=== PATIENT | female | born 1995 | race American Indian/Alaskan Native ===

== ENCOUNTER 2016-05-14 11:36 | Outpatient (CLI) | payer MEDICAID ==
[2016-05-14 12:10] VITALS: BP 111/68
== END 2016-05-14 13:05 | disposition home or self-care (01) ==
LOC: TRG 11:36
PROVIDERS: ATTEND Obstetrics & Gynecology
DX: O77.9 Labor and delivery complicated by fetal stress, unspecified (principal); O47.9 False labor, unspecified; Z3A.00 Weeks of gestation of pregnancy not specified
CPT/HCPCS: 59025

== ENCOUNTER 2016-05-16 07:03 | Inpatient (IN) | payer MEDICAID ==
[2016-05-16] MEDS ORDERED: LACTATED RINGERS 1,000 ML ONE (07:43)
[2016-05-16] MEDS ORDERED: SUBLIMAZE ONE (08:11)
[2016-05-16] MEDS ORDERED: SUBLIMAZE IV ONE (08:18)
[2016-05-16 09:00] LABS: Hematocrit 31.3 % (30.3-42.9); Hemoglobin 10.2 gm/dl (10.1-14.3); Mean Corpuscular HGB Conc 33 % (30-34); Mean Corpuscular Hemoglobin 27 pg (28-32); Mean Corpuscular Volume 81 fl (79-97); Platelet Count 252 K/mm3 (140-440); Red Blood Count 3.85 M/mm3 (3.65-5.03); Red Cell Distribution Width 13.5 % (13.2-15.2)
[2016-05-16] MEDS ORDERED: LACTATED RINGERS 1,000 ML IV SCH ×2 (09:00→10:00)
[2016-05-16] MEDS ORDERED: BRETHINE IVP PRN (09:17)
[2016-05-16] MEDS ORDERED: MINERAL OIL PO PRN (09:17)
[2016-05-16] MEDS ORDERED: ePHEDrine SULFATE IV PRN ×2 (09:17→10:37)
[2016-05-16] MEDS ORDERED: BRETHINE SUB-Q PRN (09:17)
[2016-05-16] MEDS ORDERED: XYLOCAINE 2% INFILTRATI ONE ×2 (09:17→17:05)
--- NOTE | 2016-05-16 09:44 | History and Physical Report ---
History of Present Illness Date of examination: 05/16/16 Date of admission: 05/16/16 07:34 Chief complaint: Painful contractions History of present illness: 20-year-old at 40+5 weeks presents in active labor, she is a [facility] patient. care unremarkable so far per patient, no records available at this time. Has an oral history of seizure disorders, last attack was a year ago. She stopped her medication by herself insurance reasons. She was seen by maternal medicine during this Past History Past Medical History: seizure (No attack in over 1 year) Past Surgical History: no surgical history [employer] History: denies: chlamydia, gonorrhea, hepatitis B, hepatitis C, herpes, HIV , syphilis Social history: single, full code. denies: smoking, alcohol abuse, prescription drug abuse, IV drug use - Obstetrical History Expected Date of Delivery: 05/11/16 Actual Gestation: 40 Week(s) 5 Day(s) : 1 Para: 0 Medications and Allergies Allergies Allergy/AdvReac Type Severity Reaction Status Date / Time Penicillins Allergy Swelling Verified 05/14/16 11:48 Home Medications Medication Instructions Recorded Confirmed Last Taken Type Ciprofloxacin [Ciprofloxacin ORAL 500 mg PO Q12H #14 ml 04/16/15 Unknown Rx LIQ] Ibuprofen [Motrin 800 MG tab] 800 mg PO Q8HR PRN #30 tablet 04/16/15 Unknown Rx Magnesium Citrate [Citrate of 300 ml PO NOW #1 bottle 04/16/15 Unknown Rx Magnesia] Na Phos,M-B/Na Phos,Di-Ba [Fleet 266 ml RC ONCE #1 enema 04/16/15 Unknown Rx Enema] Ondansetron [Zofran Odt] 4 mg PO Q6HR PRN #20 tab.rapdis 04/16/15 Unknown Rx Active Meds: Active Medications Lactated Ringer's (Lactated Ringers) 1,000 mls @ 125 mls/hr IV DIRECT IMER Review of Systems Constitutional: no fever, no chills Cardiovascular: no chest pain, no orthopnea, no syncope, no lightheadedness, no shortness of breath, no dyspnea on exertion, no high blood pressure Respiratory: no shortness of breath, no dyspnea on exertion Gastrointestinal: abdominal pain (Painful contractins), no nausea, no vomiting Genitourinary: no vaginal bleeding, no vaginal discharge, no leakage of fluid - Vital Signs Vital signs: Vital Signs Pulse Pulse Ox 84 100 05/16/16 07:18 05/16/16 07:18 Temp Pulse Resp BP Pulse Ox 97.1 F L 79 18 76/46 100 05/16/16 07:51 05/16/16 09:06 05/16/16 07:51 05/16/16 08:53 05/16/16 09:06 - Physical Exam Abdomen: Positive: normal appearance, soft. Negative: distention, tenderness, guarding, rigidity Genitourinary (Female): Positive: normal external genitalia Uterus: Positive: enlarged (EFW ~ 3400) Adnexa: both: normal Extremities: Positive: normal - Obstetrical FHR: category 1 Cervical Dilatation: 5 (Per RN exam) Results Result Diagrams: 05/16/16 08:00 Abnormal lab results 05/16/16 Range/Units 08:00 MCH 27 L (28-32) pg All other labs normal. Assessment and Plan A: 20 y/o at 40+5 wks in active labour -Cat 1 tracing P: -Admit -Obtain routine labs -Epidural prn -Expectant mgt -Anticipate - Patient Problems (1) Postmaturity , 40-42 weeks gestation Current Visit: Yes Status: Acute (2) Active labor at term Current Visit: Yes Status: Acute
[2016-05-16] MEDS ORDERED: CLEOCIN 900 MG/50 mL 900 MG/50 ML BAG IV SCH (10:00)
[2016-05-16] MEDS ORDERED: PITOCin/NS 20 UNIT/1000ML DRIP 20 UNIT/1,000 ML BAG IV SCH (10:00)
[2016-05-16] MEDS ORDERED: PITOCin/NS 30 UNIT/500ML 30 UNIT/500 ML BAG IV SCH (10:00)
[2016-05-16] MEDS ORDERED: NARCAN 2 MG/2 ML IV PRN (10:37)
--- NOTE | 2016-05-16 10:37 | Anesthesia Consultation ---
Anesthesia Consult and Med Hx Date of service: 05/16/16 - Airway Anesthetic Teeth Evaluation: Good ROM Head & Neck: Adequate Mental/Hyoid Distance: Adequate Mallampati Class: Class II Intubation Access Assessment: Probably Good - Pre-Operative Health Status ASA Pre-Surgery Classification: ASA2 Proposed Anesthetic Plan: Epidural, Spinal - Pulmonary Hx Asthma: No - Cardiovascular System Hx Hypertension: No - Central Nervous System Hx Seizures: Yes (2013) Hx Psychiatric Problems: No - Endocrine Hx Renal Disease: No Hx Hypothyroidism: No Hx Hyperthyroidism: No - Hematic Hx Anemia: Yes Hx Sickle Cell Disease: No - Other Systems Hx Alcohol Use: No
[2016-05-16] MEDS ORDERED: fentaNYL-BUPIV 2 MCG/ML-0.125% 200 MCG/100 ML BAG EPIDURAL SCH (11:00)
[2016-05-16 11:30] LABS: Hematocrit 28.2 % (30.3-42.9); Hemoglobin 9.3 gm/dl (10.1-14.3); Mean Corpuscular HGB Conc 33 % (30-34); Mean Corpuscular Hemoglobin 26 pg (28-32); Mean Corpuscular Volume 80 fl (79-97); Platelet Count 239 K/mm3 (140-440); Red Blood Count 3.52 M/mm3 (3.65-5.03); Red Cell Distribution Width 13.4 % (13.2-15.2); White Blood Count 7.6 K/mm3 (4.5-11.0)
--- NOTE | 2016-05-16 11:45 | Progress Note ---
Assessment and Plan A: 20 y/o at 40+5 wks in active labour -Cat 2 tracing P: -Will start Oxygen, IV fluids and position changes -Consider Pit if no cervical change noted -Continue present care - Patient Problems (1) Postmaturity , 40-42 weeks gestation Current Visit: Yes Status: Acute (2) Active labor at term Current Visit: Yes Status: Acute Subjective - Subjective Date of service: 05/16/16 Interval history: Patient is s/p epidural. Her tracing has minimal variability with no decels or accels She is 7/100/0 station, no pitocin at this time Patient reports: new complaints, movement normal, contractions, no loss of fluid, no vaginal bleeding Objective - Vital Signs Vital Signs: Vital Signs - 12hr 05/16/16 05/16/16 05/16/16 07:18 07:19 07:23 Temperature Pulse Rate 84 80 89 Pulse Rate [ From Monitor] Respiratory Rate Blood Pressure 142/74 Blood Pressure [Left Arm] O2 Sat by Pulse 100 98 Oximetry 05/16/16 05/16/16 05/16/16 07:28 07:33 07:34 Temperature Pulse Rate 84 77 81 Pulse Rate [ From Monitor] Respiratory Rate Blood Pressure 129/72 Blood Pressure [Left Arm] O2 Sat by Pulse 100 100 Oximetry 05/16/16 05/16/16 05/16/16 07:51 07:52 07:57 Temperature 97.1 F L Pulse Rate 72 82 Pulse Rate [ 79 From Monitor] Respiratory 18 Rate Blood Pressure 129/72 Blood Pressure 129/72 [Left Arm] O2 Sat by Pulse 100 100 100 Oximetry 05/16/16 05/16/16 05/16/16 08:06 08:11 08:16 Temperature Pulse Rate 79 68 74 Pulse Rate [ From Monitor] Respiratory Rate Blood Pressure Blood Pressure [Left Arm] O2 Sat by Pulse 100 100 100 Oximetry 05/16/16 05/16/16 05/16/16 08:21 08:23 08:26 Temperature Pulse Rate 82 67 71 Pulse Rate [ From Monitor] Respiratory Rate Blood Pressure 124/59 Blood Pressure [Left Arm] O2 Sat by Pulse 100 100 Oximetry 05/16/16 05/16/16 05/16/16 08:31 08:36 08:41 Temperature Pulse Rate 74 68 69 Pulse Rate [ From Monitor] Respiratory Rate Blood Pressure Blood Pressure [Left Arm] O2 Sat by Pulse 100 100 100 Oximetry 05/16/16 05/16/16 05/16/16 08:46 08:51 08:53 Temperature Pulse Rate 68 64 63 Pulse Rate [ From Monitor] Respiratory Rate Blood Pressure 76/46 Blood Pressure [Left Arm] O2 Sat by Pulse 100 100 Oximetry 05/16/16 05/16/16 05/16/16 08:56 09:01 09:06 Temperature Pulse Rate 69 70 79 Pulse Rate [ From Monitor] Respiratory Rate Blood Pressure Blood Pressure [Left Arm] O2 Sat by Pulse 100 100 100 Oximetry 05/16/16 05/16/16 05/16/16 09:11 10:37 10:39 Temperature Pulse Rate 66 76 78 Pulse Rate [ From Monitor] Respiratory Rate Blood Pressure 113/61 113/61 Blood Pressure [Left Arm] O2 Sat by Pulse 100 100 Oximetry 05/16/16 05/16/16 05/16/16 10:41 10:42 10:43 Temperature Pulse Rate 78 80 76 Pulse Rate [ From Monitor] Respiratory Rate Blood Pressure 119/62 117/65 Blood Pressure [Left Arm] O2 Sat by Pulse 100 Oximetry 05/16/16 05/16/16 05/16/16 10:44 10:45 10:47 Temperature Pulse Rate 67 66 71 Pulse Rate [ From Monitor] Respiratory Rate Blood Pressure 114/58 116/64 Blood Pressure [Left Arm] O2 Sat by Pulse 92 100 Oximetry 05/16/16 05/16/16 05/16/16 10:49 10:51 10:52 Temperature Pulse Rate 76 70 73 Pulse Rate [ From Monitor] Respiratory Rate Blood Pressure 112/60 119/73 Blood Pressure [Left Arm] O2 Sat by Pulse 100 Oximetry 05/16/16 05/16/16 05/16/16 10:53 10:55 10:57 Temperature Pulse Rate 63 73 71 Pulse Rate [ From Monitor] Respiratory Rate Blood Pressure 112/58 114/59 Blood Pressure [Left Arm] O2 Sat by Pulse 100 Oximetry 05/16/16 05/16/16 05/16/16 11:02 11:07 11:12 Temperature Pulse Rate 65 70 71 Pulse Rate [ From Monitor] Respiratory Rate Blood Pressure Blood Pressure [Left Arm] O2 Sat by Pulse 100 100 100 Oximetry 05/16/16 05/16/16 05/16/16 11:17 11:22 11:27 Temperature Pulse Rate 66 71 88 Pulse Rate [ From Monitor] Respiratory Rate Blood Pressure 123/100 Blood Pressure [Left Arm] O2 Sat by Pulse 100 100 100 Oximetry 05/16/16 05/16/16 05/16/16 11:32 11:37 11:40 Temperature Pulse Rate 69 70 68 Pulse Rate [ From Monitor] Respiratory Rate Blood Pressure 113/71 Blood Pressure [Left Arm] O2 Sat by Pulse 100 100 Oximetry - Exam FHR: category 2 (Minimal variability, no decels or accels) Cervical Dilatation: 7 Cervical Effacement Percentage: 100 station: 0 - Labs Labs: Abnormal Labs 05/16/16 05/16/16 08:00 10:11 RBC 3.52 L Hgb 9.3 L Hct 28.2 L MCH 27 L 26 L Laboratory Results - last 24 hr 05/16/16 05/16/16 05/16/16 08:00 08:00 10:11 WBC 8.0 7.6 RBC 3.85 3.52 L Hgb 10.2 9.3 L Hct 31.3 28.2 L MCV 81 80 MCH 27 L 26 L MCHC 33 33 RDW 13.5 13.4 Plt Count 252 239 Blood Type B POSITIVE Antibody Screen Negative
--- NOTE | 2016-05-16 16:04 | Progress Note ---
Assessment and Plan A: 20 y/o at 40+5 wks in active labour -Cat 2 tracing P: -Will allow patient to labor down -Anticipate -Discussed above issues with patient including possible need for LTCS if no descent occurs - Patient Problems (1) Postmaturity , 40-42 weeks gestation Current Visit: Yes Status: Acute (2) Active labor at term Current Visit: Yes Status: Acute Subjective - Subjective Date of service: 05/16/16 Interval history: Called to patients room for decel. Pit stopped, position changes initiated and decel resolved. On exam, she is fully dilated at +1 with caput. Patient reports: new complaints, movement normal, contractions, no loss of fluid, no vaginal bleeding Objective - Vital Signs Vital Signs: Vital Signs - 12hr 05/16/16 05/16/16 05/16/16 07:18 07:19 07:23 Temperature Pulse Rate 84 80 89 Pulse Rate [ From Monitor] Respiratory Rate Blood Pressure 142/74 Blood Pressure [Left Arm] O2 Sat by Pulse 100 98 Oximetry 05/16/16 05/16/16 05/16/16 07:28 07:33 07:34 Temperature Pulse Rate 84 77 81 Pulse Rate [ From Monitor] Respiratory Rate Blood Pressure 129/72 Blood Pressure [Left Arm] O2 Sat by Pulse 100 100 Oximetry 05/16/16 05/16/16 05/16/16 07:51 07:52 07:57 Temperature 97.1 F L Pulse Rate 72 82 Pulse Rate [ 79 From Monitor] Respiratory 18 Rate Blood Pressure 129/72 Blood Pressure 129/72 [Left Arm] O2 Sat by Pulse 100 100 100 Oximetry 05/16/16 05/16/16 05/16/16 08:06 08:11 08:16 Temperature Pulse Rate 79 68 74 Pulse Rate [ From Monitor] Respiratory Rate Blood Pressure Blood Pressure [Left Arm] O2 Sat by Pulse 100 100 100 Oximetry 05/16/16 05/16/16 05/16/16 08:21 08:23 08:26 Temperature Pulse Rate 82 67 71 Pulse Rate [ From Monitor] Respiratory Rate Blood Pressure 124/59 Blood Pressure [Left Arm] O2 Sat by Pulse 100 100 Oximetry 05/16/16 05/16/16 05/16/16 08:31 08:36 08:41 Temperature Pulse Rate 74 68 69 Pulse Rate [ From Monitor] Respiratory Rate Blood Pressure Blood Pressure [Left Arm] O2 Sat by Pulse 100 100 100 Oximetry 05/16/16 05/16/16 05/16/16 08:46 08:51 08:53 Temperature Pulse Rate 68 64 63 Pulse Rate [ From Monitor] Respiratory Rate Blood Pressure 76/46 Blood Pressure [Left Arm] O2 Sat by Pulse 100 100 Oximetry 05/16/16 05/16/16 05/16/16 08:56 09:01 09:06 Temperature Pulse Rate 69 70 79 Pulse Rate [ From Monitor] Respiratory Rate Blood Pressure Blood Pressure [Left Arm] O2 Sat by Pulse 100 100 100 Oximetry 05/16/16 05/16/16 05/16/16 09:11 10:37 10:39 Temperature Pulse Rate 66 76 78 Pulse Rate [ From Monitor] Respiratory Rate Blood Pressure 113/61 113/61 Blood Pressure [Left Arm] O2 Sat by Pulse 100 100 Oximetry 05/16/16 05/16/16 05/16/16 10:41 10:42 10:43 Temperature Pulse Rate 78 80 76 Pulse Rate [ From Monitor] Respiratory Rate Blood Pressure 119/62 117/65 Blood Pressure [Left Arm] O2 Sat by Pulse 100 Oximetry 05/16/16 05/16/16 05/16/16 10:44 10:45 10:47 Temperature Pulse Rate 67 66 71 Pulse Rate [ From Monitor] Respiratory Rate Blood Pressure 114/58 116/64 Blood Pressure [Left Arm] O2 Sat by Pulse 92 100 Oximetry 05/16/16 05/16/16 05/16/16 10:49 10:51 10:52 Temperature Pulse Rate 76 70 73 Pulse Rate [ From Monitor] Respiratory Rate Blood Pressure 112/60 119/73 Blood Pressure [Left Arm] O2 Sat by Pulse 100 Oximetry 05/16/16 05/16/16 05/16/16 10:53 10:55 10:57 Temperature Pulse Rate 63 73 71 Pulse Rate [ From Monitor] Respiratory Rate Blood Pressure 112/58 114/59 Blood Pressure [Left Arm] O2 Sat by Pulse 100 Oximetry 05/16/16 05/16/16 05/16/16 11:02 11:07 11:12 Temperature Pulse Rate 65 70 71 Pulse Rate [ From Monitor] Respiratory Rate Blood Pressure Blood Pressure [Left Arm] O2 Sat by Pulse 100 100 100 Oximetry 05/16/16 05/16/16 05/16/16 11:17 11:22 11:27 Temperature Pulse Rate 66 71 88 Pulse Rate [ From Monitor] Respiratory Rate Blood Pressure 123/100 Blood Pressure [Left Arm] O2 Sat by Pulse 100 100 100 Oximetry 05/16/16 05/16/16 05/16/16 11:32 11:37 11:40 Temperature Pulse Rate 69 70 68 Pulse Rate [ From Monitor] Respiratory Rate Blood Pressure 113/71 Blood Pressure [Left Arm] O2 Sat by Pulse 100 100 Oximetry 05/16/16 05/16/16 05/16/16 11:42 11:47 11:52 Temperature Pulse Rate 71 84 63 Pulse Rate [ From Monitor] Respiratory Rate Blood Pressure Blood Pressure [Left Arm] O2 Sat by Pulse 100 100 100 Oximetry 05/16/16 05/16/16 05/16/16 11:57 11:58 12:02 Temperature Pulse Rate 67 65 72 Pulse Rate [ From Monitor] Respiratory Rate Blood Pressure 112/54 Blood Pressure [Left Arm] O2 Sat by Pulse 100 100 Oximetry 05/16/16 05/16/16 05/16/16 12:07 12:12 12:17 Temperature Pulse Rate 69 68 63 Pulse Rate [ From Monitor] Respiratory Rate Blood Pressure Blood Pressure [Left Arm] O2 Sat by Pulse 100 100 100 Oximetry 05/16/16 05/16/16 05/16/16 12:22 12:27 12:29 Temperature Pulse Rate 63 64 62 Pulse Rate [ From Monitor] Respiratory Rate Blood Pressure 98/53 Blood Pressure [Left Arm] O2 Sat by Pulse 100 100 Oximetry 05/16/16 05/16/16 05/16/16 12:32 12:37 12:42 Temperature Pulse Rate 71 68 60 Pulse Rate [ From Monitor] Respiratory Rate Blood Pressure Blood Pressure [Left Arm] O2 Sat by Pulse 100 100 100 Oximetry 05/16/16 05/16/16 05/16/16 12:47 12:52 12:57 Temperature Pulse Rate 63 66 65 Pulse Rate [ From Monitor] Respiratory Rate Blood Pressure Blood Pressure [Left Arm] O2 Sat by Pulse 100 100 100 Oximetry 05/16/16 05/16/16 05/16/16 13:02 13:07 13:12 Temperature Pulse Rate 66 62 75 Pulse Rate [ From Monitor] Respiratory Rate Blood Pressure Blood Pressure [Left Arm] O2 Sat by Pulse 100 100 100 Oximetry 05/16/16 05/16/16 05/16/16 13:17 13:22 13:27 Temperature Pulse Rate 66 64 67 Pulse Rate [ From Monitor] Respiratory Rate Blood Pressure 114/71 Blood Pressure [Left Arm] O2 Sat by Pulse 100 100 100 Oximetry 05/16/16 05/16/16 05/16/16 13:32 13:37 13:42 Temperature Pulse Rate 65 64 70 Pulse Rate [ From Monitor] Respiratory Rate Blood Pressure Blood Pressure [Left Arm] O2 Sat by Pulse 100 100 100 Oximetry 05/16/16 05/16/16 05/16/16 13:47 13:52 13:57 Temperature Pulse Rate 92 H 75 70 Pulse Rate [ From Monitor] Respiratory Rate Blood Pressure Blood Pressure [Left Arm] O2 Sat by Pulse 100 100 100 Oximetry 05/16/16 05/16/16 05/16/16 14:02 14:07 14:12 Temperature Pulse Rate 73 85 68 Pulse Rate [ From Monitor] Respiratory Rate Blood Pressure Blood Pressure [Left Arm] O2 Sat by Pulse 100 100 100 Oximetry 05/16/16 05/16/16 05/16/16 14:17 14:22 14:26 Temperature Pulse Rate 81 76 64 Pulse Rate [ From Monitor] Respiratory Rate Blood Pressure 128/71 Blood Pressure [Left Arm] O2 Sat by Pulse 100 100 Oximetry 05/16/16 05/16/16 05/16/16 14:27 14:32 14:37 Temperature Pulse Rate 67 65 67 Pulse Rate [ From Monitor] Respiratory Rate Blood Pressure Blood Pressure [Left Arm] O2 Sat by Pulse 100 100 100 Oximetry 05/16/16 05/16/16 05/16/16 14:42 14:54 14:58 Temperature Pulse Rate 72 64 61 Pulse Rate [ From Monitor] Respiratory Rate Blood Pressure 101/56 Blood Pressure [Left Arm] O2 Sat by Pulse 100 100 Oximetry 05/16/16 05/16/16 05/16/16 14:59 15:04 15:09 Temperature Pulse Rate 61 60 61 Pulse Rate [ From Monitor] Respiratory Rate Blood Pressure Blood Pressure [Left Arm] O2 Sat by Pulse 100 100 100 Oximetry 05/16/16 05/16/16 05/16/16 15:14 15:18 15:19 Temperature Pulse Rate 63 63 Pulse Rate [ From Monitor] Respiratory Rate Blood Pressure Blood Pressure 101/56 [Left Arm] O2 Sat by Pulse 100 100 Oximetry 05/16/16 05/16/16 05/16/16 15:24 15:26 15:29 Temperature Pulse Rate 66 61 75 Pulse Rate [ From Monitor] Respiratory Rate Blood Pressure 124/77 Blood Pressure [Left Arm] O2 Sat by Pulse 100 100 Oximetry 05/16/16 05/16/16 05/16/16 15:39 15:45 15:50 Temperature Pulse Rate 86 65 60 Pulse Rate [ From Monitor] Respiratory Rate Blood Pressure 117/79 Blood Pressure [Left Arm] O2 Sat by Pulse 100 86 87 Oximetry 05/16/16 05/16/16 15:55 15:57 Temperature Pulse Rate 63 63 Pulse Rate [ From Monitor] Respiratory Rate Blood Pressure 127/72 Blood Pressure [Left Arm] O2 Sat by Pulse 100 Oximetry - Exam FHR: category 2 Cervical Dilatation: 10 station: +1 - Labs Labs: Abnormal Labs 05/16/16 05/16/16 08:00 10:11 RBC 3.52 L Hgb 9.3 L Hct 28.2 L MCH 27 L 26 L Laboratory Results - last 24 hr 05/16/16 05/16/16 05/16/16 08:00 08:00 10:11 WBC 8.0 7.6 RBC 3.85 3.52 L Hgb 10.2 9.3 L Hct 31.3 28.2 L MCV 81 80 MCH 27 L 26 L MCHC 33 33 RDW 13.5 13.4 Plt Count 252 239 Blood Type B POSITIVE Antibody Screen Negative
--- NOTE | 2016-05-16 17:23 | Procedure Note ---
OB Delivery Note - Delivery Date of Delivery: 05/16/16 Surgeon: JOSE RAMON PERLA Estimated blood loss: 100cc - Vaginal Delivery presentation: vertex Delivery position: OA Intrapartum events: meconium, decreased FHT variability, extend. bradycardia Delivery induction: none Delivery augmentation: rupture of membranes, pitocin Delivery monitor: external FHT, external uterine, internal FHT Route of delivery: Delivery placenta: spontaneous Delivery cord: 3 umbilical vessels Episiotomy: none Delivery laceration: 2nd degree, other (Right benjamin-urethral) Delivery repair: vicryl Anesthesia: epidural - A at 1 minute: 8 at 5 minutes: 9 Gender: Male (Del @ 17:09, weight is 7#0 or 3174 gms)
[2016-05-16] MEDS ORDERED: ANUCORT-HC PR PRN (17:24)
[2016-05-16] MEDS ORDERED: MILK OF MAGNESIA PO PRN (17:24)
[2016-05-16] MEDS ORDERED: DERMOPLAST TP PRN (17:24)
[2016-05-16] MEDS ORDERED: TUCKS PAD TP PRN (17:24)
[2016-05-16] MEDS ORDERED: TYLENOL PO PRN (17:24)
[2016-05-16] MEDS ORDERED: BENADRYL PO PRN (17:24)
[2016-05-16] MEDS ORDERED: PHENERGAN PO PRN (17:24)
[2016-05-16] MEDS ORDERED: PHENERGAN PR PRN (17:24)
[2016-05-16] MEDS ORDERED: ZOFRAN IV PRN (17:24)
[2016-05-16] MEDS ORDERED: DULCOLAX PR PRN (17:24)
[2016-05-16] MEDS ORDERED: LANSINOH TP PRN (17:24)
[2016-05-16] MEDS ORDERED: NORCO 5/325 PO PRN (17:24)
[2016-05-16] MEDS ORDERED: PITOCin/NS 20 UNIT/1000ML DRIP 20 UNITS/1,000 ML BAG IV SCH (18:00)
[2016-05-16] MEDS ORDERED: SODIUM CHLORIDE FLUSH SYRINGE 10 ML IV NR (18:00)
[2016-05-16] MEDS: COLACE PO SCH (22:05)
[2016-05-16] MEDS: FEOSOL PO SCH (22:05)
[2016-05-16] MEDS: MOTRIN PO SCH (22:05)
[2016-05-17] MEDS: MOTRIN PO SCH ×4 (05:15→17:30)
[2016-05-17] MEDS ORDERED: BOOSTRIX IM ONE (06:00)
[2016-05-17 06:14] LABS: Hematocrit 25.4 % (30.3-42.9); Hemoglobin 8.4 gm/dl (10.1-14.3)
[2016-05-17] MEDS: COLACE PO SCH ×2 (09:23→22:12)
[2016-05-17] MEDS: PRENATAL VITAMIN PO SCH (09:24)
[2016-05-17] MEDS: FEOSOL PO SCH (09:24)
--- NOTE | 2016-05-17 10:21 | Progress Note ---
Assessment and Plan - Patient Problems (1) (normal spontaneous vaginal delivery) Onset Date: 05/17/16 Current Visit: Yes Status: Resolved Plan to address problem: A: S/P - PPD #1 Doing well Asymptomatic anemia - stable P: May go home tomorrow. Subjective - Subjective Date of service: 05/17/16 Principal diagnosis: s/p - PPD #1 Interval history: Pt is feeling well without complaints. Bleeding improved. Patient reports: appetite normal, voiding normally, pain well controlled, flatus , ambulating normally [place]: doing well, nursing well Objective - Vital Signs Latest vital signs: Vital Signs Temp Pulse Pulse Pulse Resp BP BP 05/17/16 09:09 98.5 F 76 20 108/50 05/17/16 00:00 98.2 F 81 18 115/56 05/16/16 20:00 98.8 F 86 18 131/57 05/16/16 18:13 75 136/68 05/16/16 17:58 68 137/77 05/16/16 17:43 80 137/76 05/16/16 17:16 71 131/80 05/16/16 17:15 98.4 F 131/80 05/16/16 17:03 79 05/16/16 17:00 66 05/16/16 16:57 78 135/70 05/16/16 16:56 64 05/16/16 16:53 38 L 05/16/16 16:51 70 05/16/16 16:46 71 05/16/16 16:41 68 05/16/16 16:36 70 05/16/16 16:31 66 05/16/16 16:27 67 136/70 05/16/16 16:26 83 05/16/16 16:21 61 05/16/16 16:16 64 05/16/16 16:13 71 05/16/16 16:11 83 05/16/16 16:08 68 05/16/16 16:05 63 05/16/16 16:03 80 05/16/16 16:00 65 05/16/16 15:57 63 127/72 05/16/16 15:55 63 05/16/16 15:50 60 05/16/16 15:45 65 05/16/16 15:39 86 117/79 05/16/16 15:29 75 05/16/16 15:26 61 124/77 05/16/16 15:24 66 05/16/16 15:19 63 05/16/16 15:18 101/56 05/16/16 15:14 63 05/16/16 15:09 61 05/16/16 15:04 60 05/16/16 14:59 61 05/16/16 14:58 61 101/56 05/16/16 14:54 64 05/16/16 14:42 72 05/16/16 14:37 67 05/16/16 14:32 65 05/16/16 14:27 67 05/16/16 14:26 64 128/71 05/16/16 14:22 76 05/16/16 14:17 81 05/16/16 14:12 68 05/16/16 14:07 85 05/16/16 14:02 73 05/16/16 13:57 70 05/16/16 13:52 75 05/16/16 13:47 92 H 05/16/16 13:42 70 05/16/16 13:37 64 05/16/16 13:32 65 05/16/16 13:27 67 114/71 05/16/16 13:22 64 05/16/16 13:17 66 05/16/16 13:12 75 05/16/16 13:07 62 05/16/16 13:02 66 05/16/16 12:57 65 05/16/16 12:52 66 05/16/16 12:47 63 05/16/16 12:42 60 05/16/16 12:37 68 05/16/16 12:32 71 05/16/16 12:29 62 98/53 05/16/16 12:27 64 05/16/16 12:22 63 05/16/16 12:17 63 05/16/16 12:12 68 05/16/16 12:07 69 05/16/16 12:02 72 05/16/16 11:58 65 112/54 05/16/16 11:57 67 05/16/16 11:52 63 05/16/16 11:47 84 05/16/16 11:42 71 05/16/16 11:40 68 113/71 05/16/16 11:37 70 05/16/16 11:32 69 05/16/16 11:27 88 123/100 05/16/16 11:22 71 05/16/16 11:17 66 05/16/16 11:12 71 05/16/16 11:07 70 05/16/16 11:02 65 05/16/16 10:57 71 05/16/16 10:55 73 114/59 05/16/16 10:53 63 112/58 05/16/16 10:52 73 05/16/16 10:51 70 119/73 05/16/16 10:49 76 112/60 05/16/16 10:47 71 116/64 05/16/16 10:45 66 114/58 05/16/16 10:44 67 05/16/16 10:43 76 117/65 05/16/16 10:42 80 05/16/16 10:41 78 119/62 05/16/16 10:39 78 113/61 05/16/16 10:37 76 113/61 Pulse Ox 05/17/16 09:09 05/17/16 00:00 05/16/16 20:00 05/16/16 18:13 05/16/16 17:58 05/16/16 17:43 05/16/16 17:16 05/16/16 17:15 05/16/16 17:03 90 05/16/16 17:00 89 05/16/16 16:57 05/16/16 16:56 76 L 05/16/16 16:53 94 05/16/16 16:51 100 05/16/16 16:46 100 05/16/16 16:41 100 05/16/16 16:36 100 05/16/16 16:31 100 05/16/16 16:27 05/16/16 16:26 100 05/16/16 16:21 100 05/16/16 16:16 100 05/16/16 16:13 0 L 05/16/16 16:11 0 L 05/16/16 16:08 0 L 05/16/16 16:05 0 L 05/16/16 16:03 0 L 05/16/16 16:00 100 05/16/16 15:57 05/16/16 15:55 100 05/16/16 15:50 87 05/16/16 15:45 86 05/16/16 15:39 100 05/16/16 15:29 100 05/16/16 15:26 05/16/16 15:24 100 05/16/16 15:19 100 05/16/16 15:18 05/16/16 15:14 100 05/16/16 15:09 100 05/16/16 15:04 100 05/16/16 14:59 100 05/16/16 14:58 05/16/16 14:54 100 05/16/16 14:42 100 05/16/16 14:37 100 05/16/16 14:32 100 05/16/16 14:27 100 05/16/16 14:26 05/16/16 14:22 100 05/16/16 14:17 100 05/16/16 14:12 100 05/16/16 14:07 100 05/16/16 14:02 100 05/16/16 13:57 100 05/16/16 13:52 100 05/16/16 13:47 100 05/16/16 13:42 100 05/16/16 13:37 100 05/16/16 13:32 100 05/16/16 13:27 100 05/16/16 13:22 100 05/16/16 13:17 100 05/16/16 13:12 100 05/16/16 13:07 100 05/16/16 13:02 100 05/16/16 12:57 100 05/16/16 12:52 100 05/16/16 12:47 100 05/16/16 12:42 100 05/16/16 12:37 100 05/16/16 12:32 100 05/16/16 12:29 05/16/16 12:27 100 05/16/16 12:22 100 05/16/16 12:17 100 05/16/16 12:12 100 05/16/16 12:07 100 05/16/16 12:02 100 05/16/16 11:58 05/16/16 11:57 100 05/16/16 11:52 100 05/16/16 11:47 100 05/16/16 11:42 100 05/16/16 11:40 05/16/16 11:37 100 05/16/16 11:32 100 05/16/16 11:27 100 05/16/16 11:22 100 05/16/16 11:17 100 05/16/16 11:12 100 05/16/16 11:07 100 05/16/16 11:02 100 05/16/16 10:57 100 05/16/16 10:55 05/16/16 10:53 05/16/16 10:52 100 05/16/16 10:51 05/16/16 10:49 05/16/16 10:47 100 05/16/16 10:45 05/16/16 10:44 92 05/16/16 10:43 05/16/16 10:42 100 05/16/16 10:41 05/16/16 10:39 05/16/16 10:37 100 Intake and Output 05/16/16 05/17/16 05/17/16 22:59 06:59 14:59 Intake Total 2790 480 Output Total 1200 Balance 1590 480 Intake: IV 2550 CLEOCIN 900 MG/50 mL 900 50 mg In 50 ml @ 0 mls/hr IV Q8HR IMER Rx#:[id number] Lactated Ringers 1,000 ml 2500 @ 125 mls/hr IV DIRECT IMER Rx#:[id number] Oral 240 480 Output: Urine 1200 Indwelling Catheter 1200 Other: Total, Intake Amount 240 480 Total, Output Amount 1200 # Voids Void 1 Estimated Blood Loss 200 - Exam Breasts: Present: deferred Cardiovascular: Present: Regular rate Lungs: Present: Clear to auscultation Abdomen: Present: normal appearance, soft Uterus: Present: normal, firm, fundal height below umbilicus Extremities: Present: normal - Labs Labs: Abnormal lab results 05/16/16 05/17/16 Range/Units 10:11 05:53 RBC 3.52 L (3.65-5.03) M/mm3 Hgb 9.3 L 8.4 L (10.1-14.3) gm/dl Hct 28.2 L 25.4 L (30.3-42.9) % MCH 26 L (28-32) pg Laboratory Tests 05/16/16 05/16/16 05/16/16 08:00 08:00 10:11 WBC 8.0 7.6 RBC 3.85 3.52 L Hgb 10.2 9.3 L Hct 31.3 28.2 L MCV 81 80 MCH 27 L 26 L MCHC 33 33 RDW 13.5 13.4 Plt Count 252 239 Blood Type B POSITIVE Antibody Screen Negative 05/17/16 05:53 WBC RBC Hgb 8.4 L Hct 25.4 L MCV MCH MCHC RDW Plt Count Blood Type Antibody Screen
--- NOTE | 2016-05-17 10:24 | Discharge Summary ---
Providers - Providers Date of Admission: 05/16/16 07:34 Date of discharge: 05/18/16 Attending physician: JOSE RAMON PERLA Primary care physician: JOSE RAMON PERLA Hospitalization Reason for admission: active labor, IUP at term Delivery: Episiotomy: none Laceration: 2nd degree Incision: normal Other procedures: none complications: none Discharge diagnosis: IUP at term delivered baby: male Hospital course: Unremarkable. Condition at discharge: Good Disposition: DISCHARGED TO HOME OR SELFCARE - Discharge Diagnoses (1) (normal spontaneous vaginal delivery) Status: Resolved Plan - Discharge Medications Prescriptions: HYDROcodone/APAP 5-325 [[place] 5/325] 1 each PO Q6HR PRN #10 tablet PRN Reason: Pain Ibuprofen [Motrin 600 MG tab] 600 mg PO Q8H PRN #30 tablet PRN Reason: Pain Multivitamin with Iron [Multivitamins with Iron] 1 each PO DAILY #30 tablet - Provider Discharge Summary Activity: routine, no sex for 6 weeks, no heavy lifting 4 weeks, no strenuous exercise Diet: routine Instructions: routine Additional instructions: [] Smoking cessation referral if applicable(refer to patient education folder for contact #) [] Refer to [facility]'s [facility] Booklet Call your doctor immediately for: * Fever > 100.5 * Heavy vaginal bleeding ( >1 pad per hour) * Severe persistent headache * Shortness of breath * Reddened, hot, painful area to leg or breast * Drainage or odor from incision. * Keep incision clean and dry at all times and follow doctor's instructions regarding bathing/showering - Follow up plan Follow up: JOSE RAMON PERLA MD [Primary Care Provider] - 6 Weeks
--- NOTE | 2016-05-17 14:04 | Progress Note ---
Subjective Date of service: 05/16/16 Principal diagnosis: s/p - PPD #1 Interval history: 1 Day post-delivery with epidural. Patient states tolerated epidural well, pain is well controlled, no residual weakness in legs, minimal back pain, no anesthetic complications, and has been ambulating well. Objective - Constitutional Vitals: Vital Signs - 12hr 05/17/16 09:09 Temperature 98.5 F Pulse Rate [ 76 Left Radial] Respiratory 20 Rate Blood Pressure 108/50 [Left Arm] - Labs CBC & Chem 7: 05/17/16 05:53 Labs: Abnormal lab results 05/17/16 Range/Units 05:53 Hgb 8.4 L (10.1-14.3) gm/dl Hct 25.4 L (30.3-42.9) %
[2016-05-18] MEDS: MOTRIN PO SCH ×4 (01:18→12:23)
[2016-05-18] MEDS: FEOSOL PO SCH ×2 (01:19→09:41)
[2016-05-18] MEDS: SENOKOT S PO SCH ×2 (01:19→07:27)
[2016-05-18] MEDS: PRENATAL VITAMIN PO SCH (09:39)
[2016-05-18] MEDS: COLACE PO SCH (09:40)
[2016-05-18 16:39] VITALS: BP 123/74
== END 2016-05-18 17:25 | disposition home or self-care (01) | DRG 775 ==
LOC: TRG 07:03 → LD 07:34 → OB 19:26
PROVIDERS: ADMIT Obstetrics & Gynecology Gynecology; ATTEND Obstetrics & Gynecology Gynecology
PROC: 10E0XZZ Delivery of Products of Conception, External Approach (ICD-10-PCS; principal; 2016-05-16)
PROC: 0KQM0ZZ Repair Perineum Muscle, Open Approach (ICD-10-PCS; 2016-05-16)
PROC: 00HU33Z Insertion of Infusion Device into Spinal Canal, Percutaneous Approach (ICD-10-PCS; 2016-05-16)
PROC: 3E0R3CZ (ICD-10-PCS; 2016-05-16)
DX: O48.0 Post-term pregnancy (principal); Z3A.40 40 weeks gestation of pregnancy; O99.354 Diseases of the nervous system complicating childbirth; Z37.0 Single live birth; O76 Abnormality in fetal heart rate and rhythm complicating labor and delivery; O77.0 Labor and delivery complicated by meconium in amniotic fluid; O71.82 Other specified trauma to perineum and vulva; O70.1 Second degree perineal laceration during delivery; O90.81 Anemia of the puerperium
CPT/HCPCS: 36415; 85014; 85018; 85027; 86850; 86900; 86901; 99211; A6250; G0463; J2590; J3010; J7120

== ENCOUNTER 2018-06-08 07:53 | Emergency (ER) | payer MEDICAID, OTHER ==
[2018-06-08 08:05] VITALS: BP 111/69
[2018-06-08] MEDS ORDERED: ZOFRAN ODT PO ONE (09:15)
[2018-06-08] MEDS ORDERED: TYLENOL #3 PO ONE (09:15)
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
--- NOTE | 2018-06-08 10:15 | XRay Report ---
RIGHT ANKLE, 3 views: History: right ankle pain. Findings: Mild soft tissue swelling is identified. No acute osseous abnormality or joint pathology is identified. The fifth metatarsal base is intact. Impression: Soft tissue swelling. No acute osseous injury.
== END 2018-06-08 10:42 | disposition home or self-care (01) ==
LOC: ED 07:53
DX: S93.401A Sprain of unspecified ligament of right ankle, initial encounter (principal); Z88.0 Allergy status to penicillin; W22.8XXA Striking against or struck by other objects, initial encounter; Y93.89 Activity, other specified; Y92.511 Restaurant or cafe as the place of occurrence of the external cause; Y99.8 Other external cause status
CPT/HCPCS: 99284; Q0162